=== PATIENT | female | born 1995 | race Two or more races ===

== ENCOUNTER 2018-02-24 21:27 | Emergency (ER) | payer BC ==
[~2018-02-24] VITALS: Ht 162.6 cm; Wt 50.0 kg
[2018-02-24 23:37] VITALS: BP 114/75
== END 2018-02-24 23:51 | disposition home or self-care (01) ==
LOC: ER 21:27
DX: F12.10 Cannabis abuse, uncomplicated (principal); R42 Dizziness and giddiness; R00.2 Palpitations
CPT/HCPCS: 99283